=== PATIENT | female | born 1965 | race Caucasian/White ===

== ENCOUNTER 2024-06-30 13:58 | Outpatient (CLI) | payer BC, SELFPAY | END 2024-06-30 13:59 | disposition home or self-care (01) | LOC: WOUND 14:03 | PROVIDERS: Visit Provider Surgery | DX: T81.31XA Disruption of external operation (surgical) wound, not elsewhere classified, initial encounter (principal); L97.423 Non-pressure chronic ulcer of left heel and midfoot with necrosis of muscle; M19.90 Unspecified osteoarthritis, unspecified site; M48.061 Spinal stenosis, lumbar region without neurogenic claudication | CPT/HCPCS: 11042; 87070; 87077; 87186; G0463 ==

== ENCOUNTER 2024-07-06 09:25 | Outpatient (CLI) | payer BC, SELFPAY | END 2024-07-06 09:26 | disposition home or self-care (01) | LOC: WOUND 09:26 | PROVIDERS: Visit Provider Nurse Practitioner Family | DX: T81.31XA Disruption of external operation (surgical) wound, not elsewhere classified, initial encounter (principal); L97.423 Non-pressure chronic ulcer of left heel and midfoot with necrosis of muscle | CPT/HCPCS: 11042; 87070; 87186; G0463 ==

== ENCOUNTER 2024-07-12 08:23 | Outpatient (CLI) | payer BC, SELFPAY | END 2024-07-12 08:24 | disposition home or self-care (01) | LOC: WOUND 08:24 | PROVIDERS: Visit Provider Nurse Practitioner Family | DX: T81.31XA Disruption of external operation (surgical) wound, not elsewhere classified, initial encounter (principal) | CPT/HCPCS: 97602; G0463 ==

== ENCOUNTER 2024-07-20 13:34 | Outpatient (CLI) | payer BC, SELFPAY | END 2024-07-20 13:35 | disposition home or self-care (01) | LOC: WOUND 13:34 | PROVIDERS: Visit Provider Nurse Practitioner Family | DX: T81.31XA Disruption of external operation (surgical) wound, not elsewhere classified, initial encounter (principal) | CPT/HCPCS: 97602; G0463 ==

== ENCOUNTER 2024-07-27 13:15 | Outpatient (CLI) | payer BC, SELFPAY | END 2024-07-27 13:16 | disposition home or self-care (01) | LOC: WOUND 13:16 | PROVIDERS: Visit Provider Nurse Practitioner Family | DX: T81.31XA Disruption of external operation (surgical) wound, not elsewhere classified, initial encounter (principal) | CPT/HCPCS: 97597 ==

== ENCOUNTER 2024-08-03 13:19 | Outpatient (CLI) | payer BC, SELFPAY | END 2024-08-03 13:20 | disposition home or self-care (01) | LOC: WOUND 13:20 | PROVIDERS: Visit Provider Nurse Practitioner Family | DX: T81.31XA Disruption of external operation (surgical) wound, not elsewhere classified, initial encounter (principal) | CPT/HCPCS: 97597 ==

== ENCOUNTER 2024-08-10 13:18 | Outpatient (CLI) | payer BC, SELFPAY | END 2024-08-10 13:19 | disposition home or self-care (01) | LOC: WOUND 13:19 | PROVIDERS: Visit Provider Family Medicine | DX: T81.31XA Disruption of external operation (surgical) wound, not elsewhere classified, initial encounter (principal) | CPT/HCPCS: 11042 ==

== ENCOUNTER 2024-08-17 13:17 | Outpatient (CLI) | payer BC, SELFPAY | END 2024-08-17 13:18 | disposition home or self-care (01) | LOC: WOUND 13:17 | PROVIDERS: Visit Provider Nurse Practitioner Family | DX: T81.31XA Disruption of external operation (surgical) wound, not elsewhere classified, initial encounter (principal) | CPT/HCPCS: 11042 ==

== ENCOUNTER 2024-08-24 13:18 | Outpatient (CLI) | payer BC, SELFPAY | END 2024-08-24 13:19 | disposition home or self-care (01) | LOC: WOUND 13:18 | PROVIDERS: Visit Provider Nurse Practitioner Family | DX: T81.31XA Disruption of external operation (surgical) wound, not elsewhere classified, initial encounter (principal) | CPT/HCPCS: 11042 ==

== ENCOUNTER 2024-08-31 13:13 | Outpatient (CLI) | payer BC, SELFPAY | END 2024-08-31 13:14 | disposition home or self-care (01) | LOC: WOUND 13:13 | PROVIDERS: Visit Provider Physician Assistant | DX: T81.31XA Disruption of external operation (surgical) wound, not elsewhere classified, initial encounter (principal) | CPT/HCPCS: 97597 ==

== ENCOUNTER 2024-09-07 13:18 | Outpatient (CLI) | payer BC, SELFPAY | END 2024-09-07 13:19 | disposition home or self-care (01) | LOC: WOUND 13:18 | PROVIDERS: Visit Provider Physician Assistant | DX: T81.31XA Disruption of external operation (surgical) wound, not elsewhere classified, initial encounter (principal) | CPT/HCPCS: 97597 ==

== ENCOUNTER 2024-09-28 13:15 | Outpatient (CLI) | payer BC, SELFPAY | END 2024-09-28 13:16 | disposition home or self-care (01) | LOC: WOUND 13:15 | PROVIDERS: Visit Provider Nurse Practitioner Family | DX: T81.31XD Disruption of external operation (surgical) wound, not elsewhere classified, subsequent encounter (principal) | CPT/HCPCS: G0463 ==